=== PATIENT | male | born 1995 | race Caucasian/White ===

== ENCOUNTER 2021-05-14 16:28 | Inpatient (IN) | payer BC ==
[~2021-05-14] VITALS: Ht 177.8 cm; Wt 102.1 kg
[2021-05-14] MEDS ORDERED: VENTOLIN HFA 66.7 GM INH (20:32)
[2021-05-15 01:13] LABS: HEMOGLOBIN 15.4 gm/dl (14.0-17.5); WHITE BLOOD COUNT 4.7 K/UL (4.5-11.0)
[2021-05-15 01:38] LABS: BUN/CREATININE RATIO 14 (0-10)
[2021-05-15] MEDS ORDERED: IBU-200200 MG PO (12:38)
[2021-05-15] MEDS ORDERED: TYLENOL EXTRA500 MG PO (12:38)
[2021-05-16 04:10] LABS: HEMOGLOBIN 15.3 gm/dl (14.0-17.5); RED BLOOD COUNT 4.92 M/UL (4.20-5.50); WHITE BLOOD COUNT 5.7 K/UL (4.5-11.0)
[2021-05-16 04:32] LABS: BUN/CREATININE RATIO 25 (0-10)
[2021-05-17 03:46] LABS: HEMOGLOBIN 14.8 gm/dl (14.0-17.5); RED BLOOD COUNT 4.88 M/UL (4.20-5.50)
[2021-05-17 03:48] LABS: WHITE BLOOD COUNT 8.4 K/UL (4.5-11.0)
[2021-05-17 04:04] LABS: BUN/CREATININE RATIO 25 (0-10)
[2021-05-18 05:45] LABS: HEMOGLOBIN 14.2 gm/dl (14.0-17.5); WHITE BLOOD COUNT 8.1 K/UL (4.5-11.0)
[2021-05-18 06:00] LABS: BUN/CREATININE RATIO 25 (0-10)
[2021-05-18] MEDS ORDERED: DECADRON6 MG PO (08:54)
== END 2021-05-18 12:30 | disposition home or self-care (01) | DRG 177 ==
LOC: ER1 16:28 → CDU 05-15 00:18 → MED SURG 4 05-15 00:18
PROVIDERS: Internal Medicine; Physician Assistant; ADMIT Internal Medicine
PROC: 3E0333Z Introduction of Anti-inflammatory into Peripheral Vein, Percutaneous Approach (ICD-10-PCS; principal; 2021-05-15)
PROC: XW033E5 Introduction of Remdesivir Anti-infective into Peripheral Vein, Percutaneous Approach, New Technology Group 5 (ICD-10-PCS; 2021-05-15)
PROC: XW033G6 Introduction of REGN-COV2 Monoclonal Antibody into Peripheral Vein, Percutaneous Approach, New Technology Group 6 (ICD-10-PCS; 2021-05-15)
PROC: 8E0ZXY6 Isolation (ICD-10-PCS; 2021-05-15)
DX: U07.1 COVID-19 (principal); J12.82 Pneumonia due to coronavirus disease 2019; J96.01 Acute respiratory failure with hypoxia; Z79.899 Other long term (current) drug therapy
CPT/HCPCS: 36415; 36600; 71045; 80048; 80053; 82803; 82962; 83735; 85025; 85027; 86140; 94640; 94760; 99285; J1100; J1650; J7030; M0243; Q9967

== ENCOUNTER 2022-03-01 15:41 | Emergency (ER) | payer BC ==
[~2022-03-01 15:41] MED LIST: DECADRON6 MG PO; IBU-200200 MG PO; TYLENOL EXTRA500 MG PO; VENTOLIN HFA 66.7 GM INH
[2022-03-01] MEDS ORDERED: PREDNISONE20 MG PO (17:54)
== END 2022-03-01 18:04 | disposition home or self-care (01) ==
LOC: ER1 15:41
DX: T63.441A Toxic effect of venom of bees, accidental (unintentional), initial encounter (principal); R21 Rash and other nonspecific skin eruption; Z86.16 Personal history of COVID-19
CPT/HCPCS: 96374; 96375; 99283; J1200; J2930

== ENCOUNTER 2022-04-29 17:59 | Emergency (ER) | payer BC ==
[~2022-04-29 17:59] MED LIST changes: +PREDNISONE20 MG PO
[2022-04-29] MEDS ORDERED: MEDROL DOSEPAK 24 MG PO (19:21)
[2022-04-29] MEDS ORDERED: BENADRYL 25MG C25 MG PO (19:21)
[2022-04-29] MEDS ORDERED: PEPCID20 MG PO (19:21)
[2022-04-29] MEDS ORDERED: EPIPEN 2-P0.3 MG/0.3 INJ (19:22)
== END 2022-04-29 20:52 | disposition home or self-care (01) ==
LOC: ER1 17:59
DX: T63.461A Toxic effect of venom of wasps, accidental (unintentional), initial encounter (principal); Z91.038 Other insect allergy status
CPT/HCPCS: 96372; 96374; 96375; 99282; J1100; J1200; J2405